=== PATIENT | male | born 1970 | race Caucasian/White ===

== ENCOUNTER 2016-10-01 23:59 | Observation (INO) | payer MEDICAID, OTHER ==
[~2016-10-01] VITALS: Ht 175.3 cm; Wt 68.0 kg
[2016-10-02 00:02] VITALS: BP 141/86; PULSE 110; RESP 18; O2SAT 98
--- NOTE | 2016-10-02 00:33 | ED.REPORT ---
HPI-General Illness Date of Service Oct 02, 2016 ED Provider: Dr. Zachariah Nelson MD A 45 year old male with a history of IV drug abuse presents to the ED complaining of a right hip abscess that first appeared 5 days ago. Patient reports a history of similar pain and abscesses, requiring extensive debridement. He bears extensive scars in that same area from prior episodes of injection drug abuse induced abscesses.. His symptoms have become increasingly worse since initial onset. Patient denies fever, but has had chills, malaise, and increasing pain. Nursing Notes Stated Complaint: HIP ABSCESS Chief Complaint: Skin Rash/Abscess Nursing Notes Reviewed: Yes Allergies: Coded Allergies: No Known Allergies (Unverified , 10/02/16) General Time Seen by MD: 00:32 Chief Complaint Other (Hip Abscess) Hx Obtained From: Patient Arrived By: Walk-in Sudden in Onset?: No Onset Occurred: 5 days ago Context of Onset: Other (IV drug use ) Symptom Duration: Since onset Location: : Hip right Quality: Painful Radiation: : Does not radiate Severity: Current: Mild Severity: Maximum: Mild Associated with: Denies: Fever Pertinent Negative: Pt denies other symptoms Recent Healthcare: No recent doctor visit, No recent hospitalization Past Medical History Past Medical History Hx of abscesses IV drug abuse (heroin) IM drug abuse Reports: IV Drug use Past Surgical History Extensive debridement and drainage of abscesses Smoking History Unknown if Ever Smoker Social History Drug Use: IV drugs Other Social History: Good social support, Local resident Ambulatory Status Independent Review of Systems Abscess to the right hip Full Review of Systems Constitutional: Denies: Chills, Fever Respiratory: Denies: Shortness of breath Cardiovascular: Denies: Chest pain GI: Denies: Abdominal pain, Nausea, Vomiting Musculoskeletal: Reports: Joint pain (Hip pain secondary to abscess) Neurologic: Denies: Change LOC Complete sys rev & neg: except as marked. Physical Exam Vital Signs Vital Signs Date Time Temp Pulse Resp B/P Pulse Ox O2 Delivery O2 Flow Rate FiO2 10/02/16 00:02 38.3 110 18 141/86 98 Room Air Initial VS: Reviewed Neck: Supple, Non-tender, Full range of motion Extremities: Vascular intact, Neuro intact, No swelling, No tenderness General/Constitutional: Awake, Alert Head / Eyes: Atraumatic, Normocephalic ENT: Atraumatic, Airway patent Respiratory / Chest: Atraumatic, No respiratory distress Abdomen: Atraumatic Skin: Atraumatic, Color NL, Warm Abscess Notes: ABSCESS: Right buttock < 1cm 2 old surgical scars approx. 15-20cm Retracted surgical scar on superior glut Lateral abscess (extensive and complex) over point of hip near trochanter Tense with significant pressure Abscess #1 Location/Condition: Positive: Erythema surrounding, Fluctuant (soft fluctuant spot ), Tender Interpretation & Diagnostics Lab Results Interpretation Result Diagram: 10/02/16 0150 10/02/16 0150 Procedures Incision & Drainage Abscess I & D Abscess: Foul odor present 20 ml clump and necrotic tissue debris removal Time: 00:58 Procedure Performed by: ED physician Consent / Setup / Site Prep: Consent from patient, Time-out performed, Hand hygiene observed, Stand sterile technique, Standard surgical scrub, Sterile drapes applied Location of Abscess: Right buttock over point of hip near trochanter Skin Preparation Agent: Betadine Local Anesthesia: Lidocaine w epi 1% Incised Abscess with Scalpel: #15 Pus Drained: Large (500mL), Purulent discharge, Bloody Post-Procedure / Complications: Packing placed, Drain placed, Culture obtained, Gram stain ordered, Dressing applied, No complications, Condition improved, Tolerated procedure well, Patient stable Re-Eval/Medical Decision Med Decision/Clinical Course 45-year-old with history of IV and IM drug abuse with heroin presents with a large abscess developing over five days in his right hip and gluteus, and an area previously compromised by extensive surgery and debridement. He has large dense scars and complex anatomy in the area. Ultrasound reveals a very extensive abscess in the area involves. There is no prospect for stat drainage in the OR. He was therefore advised that relief could be obtained by draining this through a small incision now, and that surgical exploration would likely still be required. He has consented and was drained per procedure note above. 500 mL of pus were obtained and a suction canister. He had considerable pain relief after the procedure. He is admitted now for IV antibiotics, surgical referral and probable drainage in the operating room. Time of Eval: 00:59 Patient Status: Condition improved Re-Evaluation/Progress Note: Patient is rechecked. Abscess is drained. Patient tolerates procedure well. He is informed of his diagnosis and recommended treatment plan to admit. All of the patient's questions are addressed. Consultation : Referral / Consult Name: Lorene Rdz DO Consulted With: Hospitalist Call Returned at: 01:31 Brain Surgeon: Will see patient, Agrees with eval, Agrees with plan, Accepts admit Counseled Regarding: Diagnosis, Lab results, Need for admission Discharge & Departure Primary Impression: Abscess of buttock Additional Impressions: IV drug abuse Leukocytosis Disposition: ADMITTED TO HOSPITAL Discharge Condition All VS Reviewed: Yes Condition: Stable Referrals: NOPCP (PCP) Josr Merritt MD Attestation Portions of this note were transcribed by Castro Rangel. I, Dr. Nelson personally performed the history, physical exam and medical decision-making; I reviewed and confirmed the accuracy of the information in the transcribed note. Signed by: Cary Carrasco, 10/02/16 0200. Zachariah Nelson MD Oct 02, 2016 00:33 CASTRO RANGEL Oct 02, 2016 00:52
[2016-10-02] MEDS ORDERED: Meropenem Inj 1,000 MG in 0.9% Sodium Chloride 100 ML IV ONE (01:25)
[2016-10-02] MEDS ORDERED: Vancomycin Dose per Pharmacist XX ONE (01:25)
[2016-10-02] MEDS ORDERED: Polyethylene Glycol (PEG) 17 Gm Powder PO PRN ×2 (01:40→04:35)
[2016-10-02] MEDS ORDERED: Ondansetron 2 mg/mL 2 mL Inj IVPUSH PRN ×3 (01:40→13:00)
[2016-10-02] MEDS ORDERED: Alum-Mag Hydrox-Simeth 30 mL Suspension PO PRN ×2 (01:40→04:35)
[2016-10-02] MEDS ORDERED: oxyCODONE-Acetamin 5-325 mg Tablet PO ONE (01:55)
[2016-10-02 02:15] LABS: Mean Corpuscular Volume 86.8 fL (81-100); Platelet Count 439 bil/L (150-400)
[2016-10-02] MEDS ORDERED: Vancomycin Inj 1,250 MG in 0.9% Sodium Chloride 250 ML IV ONE (02:15)
[2016-10-02 02:26] VITALS: BP 121/63; PULSE 83; O2SAT 97
[2016-10-02 02:30] LABS: INR 1.16 ratio
[2016-10-02 02:35] LABS: BASOPHILS % (AUTO) 0 % (0-3); EOSINOPHILS % (AUTO) 1 % (0-5); MONOCYTES % (AUTO) 13 % (4-12); NEUTROPHILS % (AUTO) 66 % (40-74)
[2016-10-02 02:39] LABS: Magnesium 1.9 mg/dL (1.6-2.6)
[2016-10-02] MEDS: Lactated Ringer's 1,000 ML IV SCH ×3 (02:48→15:03)
[2016-10-02 03:23] LABS: ERYTHROCYTE SEDIMENTATION RATE 76 mm/hr (0-15)
--- NOTE | 2016-10-02 04:00 | NUR ---
Admission note Pt arrived from ER to [facility] [id number] approx. at 0220. Admission assessment and screening completed. POC discussed and reviewed with pt and he verbalizes understanding.
[2016-10-02] MEDS: 0.9% Sodium Chloride 1,000 ML IV SCH ×2 (04:33→14:33)
--- NOTE | 2016-10-02 04:57 | PCM.HPMED ---
Subjective Date of Service Oct 02, 2016 Primary Provider: Admitting Physician: Lorene Rdz DO Primary Care Physician: Toño Attending Physician: Lorene Rdz DO Admit Status: From the Emergency Department Chief Complaint: Right hip abscess History of Present Illness: Oswaldo is a 45 Y/O M with a history of IV drug abuse (Heroin) who presented to the ED with complaint of a right lateral hip abscess that he first noticed 5 days ago. Patient reports a history of similar pain and abscesses in the past. His symptoms have become increasingly worse since initial onset. Pain is rated 8-9 out of 10 and sharp at its worst, 7/10 presently. Last IV heroin use was 2 days ago. Associated Symptoms are diarrhea, and shortness of breath and dyspnea on exertion that have worsened over the past 3 months. Patient denies fever, sweats, chills, body aches, chest pain, blood in stool, dysuria, hematuria, constipation, abdominal pain, neck pain, sore throat, headaches. In the ED: Patient received vancomycin 1250 mg IV once, meropenem 1000 mg IV once, Percocet by mouth 05/325 mg once. Temperature 38.3, pulse 110, blood pressure 141/86, respiratory rate 18, pulse ox 98% room air Repeat vitals showed temperature 37.3, pulse 83, blood pressure 121/63, 97% on room air Hemogram: WBCs 25.8, hemoglobin 11.9 hematocrit 35.6, platelets 439, neutrophils 66%, monocytes 13, band neutrophils 9, ESR 76 PT/INR 12.5/1.16 Review of Systems: A comprehensive review of systems was conducted and was negative except as mentioned in history of present illness. Allergies Coded Allergies: No Known Allergies (Unverified , 10/02/16) Home Medications No current medications PMH Hx of abscesses History of IV drug abuse History of congenital malformation of left lower extremity Surgical History No prior history of surgery Family History Dad with history of MA, diabetes type II, hypertension, Mom with history of MA, diabetes type II, hypertension, answer unknown type, alive One brother who is alive and healthy One sister who is alive and healthy Patient reports he has lost 5 siblings, one in a motor vehicle accident, 1 in drug overdose, one was a 4-month-old baby boy who possibly secondary to SIDS. Social History Hx Alcohol Use: Yes (drinks 1-2 beers per week on occasion) Hx Substance Use: Yes (heroin IV drug abuse) Hx Tobacco Use: Yes (smokes one pack per day for 30 years) Smoking Status: Unknown if Ever Smoker Living Arrangement: with Family (lives with his mom) Exam Vital Signs Vital Sign - Last Date Time Temp Pulse Resp B/P Pulse Ox O2 Delivery O2 Flow Rate FiO2 10/02/16 02:26 37.3 83 121/63 97 Room Air 10/02/16 00:02 18 Exam General: Alert and oriented 3, resting comfortably in bed, in no acute distress , speaking in full sentences HEENT: NC/AT, eyes, PERRLA, EOMI, pupils are small but not pinpoint bilaterally , neck, soft supple, no adenopathy, mild JVD, no masses, no thyromegaly, throat mucous membranes pink and dry, no erythema, no exudates, no tonsillar swelling, no uvular deviation. Lungs: Mild crackles heard bilaterally, no wheezes, no rhonchi, no use of accessory muscles of respiration, good air movement, good respiratory effort. Heart: Regular rate and rhythm, no murmur heard, no rub, no click, no distant heart sounds, Abdomen: Soft, nontender, nondistended, bowel sounds active Extremities: Left lower shoulder prosthetic, pulses equal and symmetric upper extremity. Right lower extremity dorsalis pedis pulse palpable, without edema Neurologic: See neurologically intact, PT in full sentences, no focal neurological signs. Skin: Right hip with clean dry intact bandage, overlying erythematous skin, bandaged was not removed for exam, erythema extended medially to anterior thigh , medial thigh and scrotum were not involved, multiple small round scars that pockmark the right lower extremity anteriorly. Psychiatric: Mood affect are congruent and appropriate. Lab and Diagnostics Result Diagram: 10/02/16 01510/02/16 015 Assessment & Plan This 45-year-old male with history of IV drug use who presented to the ED complaining of a worsening painful right hip abscess onset 5 days ago. Patient had abscess drained in the ED with drainage of 500 mL of purulent material. Patient was admitted for inpatient IV antibiotics and further workup. # Acute right hip abscess, present on admission, active - Patient had history of IV drug abuse, with heroin - He has history of prior abscess formation - In ED patient had I&D with drainage of 500 mL of purulent material. - Patient was placed on meropenem and vancomycin in the ED - We will continue meropenem and vancomycin - Infectious disease consult recommended in the morning. - Surgical consult recommended in the morning. - Fluid culture pending - MRSA swab nasal pending # History of IV drug abuse, present on admission, active - No IV pain meds - By mouth pain meds only - Patient has Roxicodone 5 mg every 4 hours when necessary - Infectious disease consult recommended the morning. # Acute sepsis, present on admission, active - Temperature 38.3, pulse 110, blood pressure 141/86, respiratory rate 18, pulse ox 98% room air - Wbc's 25.8 - Sepsis criteria met for temperature 38.3, pulse 110, white blood cells 25.8 and source being right buttock abscess. - Continue IV meropenem - Continue IV vancomycin - IV fluids normal saline as needed to maintain blood pressure - Microscopic blood cultures ordered 2 pending, unfortunately blood cultures have been drawn after IV antibiotics had already been administered. - CBC, CMP for the morning # Acute leukocytosis, with left shift, present on admission, active - Temperature 38.3, pulse 110, blood pressure 141/86, respiratory rate 18, pulse ox 98% room air - Wbc's 25.8, bands 9 - Sepsis criteria met for temperature 38.3, pulse 110, white blood cells 25.8 and source being right hip abscess. - Continue IV meropenem - Continue IV vancomycin - IV fluids normal saline as needed to maintain blood pressure # Worsening shortness of breath and dyspnea over the past 3 months, present on admission, active - Given patient's history of IV drug abuse differential diagnosis includes, cardiomyopathy, sick emboli, valvular vegetations with heart failure. - Echo complete He is currently on no home medications. Disposition: Admitted to in patient service with expected length of stay greater than 2 days, secondary to severity of presenting symptoms, treatment plan, complexity of clinical work up, and risk of adverse events. CODE STATUS: Full code PCP: None, patient referred to residency clinic DVT PE prophylaxis: We will hold on prophylactic anticoagulation given possible surgery for abscess. Emergency contact : Lives with ge, VTE Prophylaxis: Sub-Q Heparin (Unfractionated) Resuscitation Status: CPR: Attempt Resuscitation Attending Statement The patient was seen and examined together with house staff on 10/02/2016 and I agree with the history, exam and plan as outlined in the note above. [place] Handley DO Oct 02, 2016 03:58 Lorene Rdz DO Oct 02, 2016 05:31
[2016-10-02] MEDS ORDERED: Vancomycin Dose per Pharmacist XX SCH (08:30)
[2016-10-02] MEDS ORDERED: Meropenem Inj 1,000 MG in IV Premix 1 EACH IV SCH (08:30)
[2016-10-02] MEDS: oxyCODONE-Acetamin 5-325 mg Tablet PO PRN ×2 (09:18→18:02)
[2016-10-02] MEDS: Vancomycin Inj 750 MG in 0.9% Sodium Chloride 250 ML IV SCH ×2 (11:21→11:31)
--- NOTE | 2016-10-02 12:19 | NUR ---
Off Unit Patient off floor to PACU via stretcher.
[2016-10-02] MEDS ORDERED: Lactated Ringer's 1,000 ML IV ONE (12:25)
[2016-10-02] MEDS ORDERED: Lactated Ringer's 1,000 ML IV SCH (12:57)
[2016-10-02] MEDS ORDERED: Lactated Ringer's 500 ML IV PRN (12:57)
--- NOTE | 2016-10-02 12:57 | PCM.HPANE ---
Patient Data Date of Service: Oct 02, 2016 Surgeon Admitting Provider:Lorene Rdz DO Attending Provider:Lorene Rdz DO Primary Care Physician:Toño Other Provider:Elvira Cosme Anesthesia Reason for Visit Abscess Right Buttock Ht/WT & BMI Height (Feet): 5 Height (Inches): 9.00 Weight (Kilograms): 68.000 Body Mass Index 22.20 Allergies Coded Allergies: No Known Allergies (Unverified , 10/02/16) Past Anesthesia History Anesthesia History: Denies:: Anesthesia Reactions Diabetes History Hx Diabetes?: No MRSA MRSA: No Medications Hypertension Medication: No Home Meds Incl Beta Ric: No No Active Prescriptions or Reported Meds History History of ENT Problems?: No Hx of Heart Problems?: Yes Cardiovascular History: Positive for:: Chest Pain Heart Murmur Hypertension Irregular Heartbeat Thrombophlebitis Denies:: Cardiac Surgery Congestive Heart Failure Edema Pacemaker Hx of Respiratory Problem?: Yes Respiratory History: Positive for:: Dyspnea Denies:: Asthma COPD Chest Surgery Emphysema Hemoptysis Pneumonia Tuberculosis Hx Neurologic Problems?: No Hx of GI Problems?: Yes Gastrointestinal History: Positive for:: Heartburn Hepatitis Denies:: Diverticulitis Gastroesphageal Reflux Gastrointestinal Bleeding Hiatal Hernia Rectal Bleeding Hx of Problems?: No Male Hx: Denies:: Prostate Problems Scrotal Mass Testicular Surgery Musculoskeletal History: Positive for:: Back Injury Musculoskeletal Trauma Denies:: Joint Replacement Hx of Psycho/Social Problems?: Yes Psycho Social History: Positive for:: Anxiety Hx Depression Denies:: Bipolar Disorder Suicide Attempt Hx Surgeries?: Yes (toe amputation, appy) Hx Any Other Health Problems?: Yes Other History: Positive for:: Hospitalization Denies:: Cancer Thyroid Disease History Blood Transfusions: Positive for:: Accept Blood Products? Denies:: Blood Transfusions Hx Diabetes: No Hx Alcohol Use: Yes (drinks 1-2 beers per week on occasion)Hx Substance Use: Yes (heroin IV drug abuse) Smoking Status: Unknown if Ever Smoker Have You Smoked inLast 12 mo: YesApprox How Many Cigarettes/day: 1 pk/day Stop/Bang Treated for Sleep Apnea?: No Do You Have a CPAP Machine?: No S-Snoring: Do You Snore Loudly: Yes T-Tired: feel tired, fatigued: No O-Obsered: Observed not breath: No P-Blood Pressure: treated: Yes B- Body Mass Index > 35 kg/m2: No A- Age over 50: No N- Neck Large Circumference: No G- Gender Male: Yes FRANCINE Total Score: 3 FRANCINE Risk Assessment: High Risk, =/>3 Yes Risk Assessment Category Category 1A: Patient has history of documented sleep apnea, and HAS NOT received any narcotic, sedative or anesthesia administration during this stay. Category 1B: Patient has history of documented sleep apnea, and HAS received any narcotic , sedative or anesthesia administration during this stay Category 2: Patient has SUSPECTED Obstructive Sleep Apnea, and HAS received any narcotic , sedative or anesthesia administration during this stay. Category 3: Patient has SUSPECTED Obstructive Sleep Apnea and HAS NOT received narcotic, sedative or anesthesia administration during this stay. Category 4: Outpatient in Procedural Areas with known sleep apnea or who screen positive for High Risk via the STOP/BANG questionnaire. Exam Exam General Appearance: Alert, Oriented X3, Cooperative Lungs: Normal Air Movement Heart: Regular Rate/Rhythm, Normal S1, Normal S2 Meds/Labs/Diagnostics Admission Meds Current Medications Pharmacy Consult 1 ea 1 ea ONCE ONCE XX Last administered on 10/02/16 02:48; Start 10/02/16 at 01:25; Stop 10/02/16 at 02:11; Status DC Meropenem 1000 mg/ Sodium Chloride 100 ml @ 200 mls/hr ONCE ONCE IV Last administered on 10/02/16 02:15; Start 10/02/16 at 01:25; Stop 10/02/16 at 01:54 ; Status DC Lactated Ringer's (Lr) 1,000 ml @ 100 mls/hr Q10H IV Last administered on 10/02 02:48; Start 10/02/16 at 01:37 Oxycodone/ Acetaminophen 1 tab 1 tab ONCE ONCE PO Last administered on 02:25; Start 10/02/16 at 01:55; Stop 10/02/16 at 01:56; Status DC Vancomycin HCl 1250 mg/Sodium Chloride 250 ml @ 166.667 mls/hr ONCE ONCE IV Last administered on 10/02/16 02:48; Start 10/02/16 at 02:15; Stop 10/02/16 at 03:44; Status DC Vancomycin HCl/ Sodium Chloride (Vancocin Inj/ Normal Saline) 250 ml @ 166.667 mls/hr Q8H IV Last administered on 10/02/16t 11:21; Start 10/02/16 at 11:00 Labs Test 10/02/16 01:50 White Blood Count 25.8th/mm3 (3.8-10.1) Red Blood Count 4.10mil/mm3 (4.40-5.80) Hemoglobin 11.9g/dL (13.8-17.2) Hematocrit 35.6% (41.0-50.0) Mean Corpuscular Volume 86.8fL (81-100) Mean Corpuscular Hemoglobin 29.0pg (27.0-35.0) Mean Corpuscular Hemoglobin Concent 33.4% (32.0-37.0) Red Cell Distribution Width 14.9% (12.3-15.4) Platelet Count 439bil/L (150-400) Neutrophils (%) (Auto) 66% (40-74) Lymphocytes (%) (Auto) 9% (14-46) Monocytes (%) (Auto) 13% (4-12) Eosinophils (%) (Auto) 1% (0-5) Basophils (%) (Auto) 0% (0-3) Band Neutrophils % 9% (1-5) Erythrocyte Sedimentation Rate 76mm/hr (0-15) Prothrombin Time 12.5sec (8.1-12.5) Prothromb Time International Ratio 1.16ratio Activated Partial Thromboplast Time 31.9sec (22.8-33.0) Sodium Level 133mEq/L (134-144) Potassium Level 3.7mEq/L (3.5-5.2) Chloride Level 94mEq/L (97-108) Carbon Dioxide Level 24mmol/L (18-29) Blood Urea Nitrogen 10mg/dL (6-24) Creatinine 0.86mg/dL (0.76-1.27) Estimat Glomerular Filtration Rate 101mL/min (>59) Glucose Level 151mg/dL (60-99) Lactic Acid Level 1.7mmol/L (0.4-2.0) Calcium Level 9.0mg/dL (8.5-10.1) Magnesium Level 1.9mg/dL (1.6-2.6) Total Bilirubin 0.3mg/dL (0.0-1.2) Aspartate Amino Transf (AST/SGOT) 23U/L (0-50) Alanine Aminotransferase (ALT/SGPT) 37U/L (0-44) Alkaline Phosphatase 151U/L (25-150) Total Protein 7.1g/dL (6.4-8.4) Albumin 3.2g/dL (3.4-5.0) Plan Impression Patient chart reviewed, patient interviewed and anesthestic plan with risks, benefits, and alternatives discussed, and informed consent obtained. NPO Status: npo ASA Physical Status: ASA3 Severe Disease Anesthetic Plan: GA Bene/Risks/Altern/Consents: Yes HP Complete Prior to Induction: Yes Scott Padgett MD Oct 02, 2016 11:48
[2016-10-02] MEDS ORDERED: Atropine 0.4 mg/mL Inj IVPUSH PRN (13:00)
[2016-10-02] MEDS ORDERED: EPHEDrine Sulfate 50 mg/mL Inj IVPUSH PRN (13:00)
[2016-10-02] MEDS ORDERED: MetoCLOpramide 5 mg/mL 2 mL Inj IVPUSH PRN (13:00)
[2016-10-02] MEDS ORDERED: Labetalol 5 mg/mL 4 mL Inj IV PRN (13:00)
[2016-10-02] MEDS ORDERED: hydrALAZINE 20 mg/mL Inj IVPUSH PRN (13:00)
[2016-10-02] MEDS ORDERED: Dexamethasone 4 mg/mL Inj IVPUSH PRN (13:00)
[2016-10-02] MEDS ORDERED: HYDROmorphone 1 mg/mL Inj IVPUSH PRN (13:00)
[2016-10-02] MEDS ORDERED: Phenylephrine 10,000 mCg/mL Inj IVPUSH PRN (13:00)
[2016-10-02 13:02] VITALS: BP 118/58; PULSE 79; RESP 15; O2SAT 100
[2016-10-02 13:10] VITALS: BP 113/66; PULSE 79; RESP 15; O2SAT 100
--- NOTE | 2016-10-02 13:11 | PCM.ANEP1 ---
Post Anesthesia Phase 1 PACU Phase 1 Assessment Date of Service: Oct 02, 2016 Vital Signs pacu HR 78, RR 8, T 36.1, BP 118/58, O2 100% 10L Anesthetic Administered: GA Level of Alertness: Sleeping, hard to arouse RUIZ's with Equal Strength: Yes Pain: Yes Pain Scale Score: 8 Oxygen Delivery: Simple Mask Lungs: Normal Air Movement Scott Padgett MD Oct 02, 2016 13:11
[2016-10-02] MEDS: fentaNYL-PF 50 mCg/mL 2 mL Inj IVPUSH PRN ×2 (13:20→13:25)
--- NOTE | 2016-10-02 13:26 | PCM.ANEP2 ---
Post Anesthesia Evaluation ASA/CMS Post Anesthesia Date of Service: Oct 02, 2016 VS in Patient's Normal Range?: Yes Resp Stable; Airway Patent?: Yes CV Function & Hydration Stable: Yes Mental Status Recovered?: Yes Pain control Satisfactory?: No (IV heroin abuse) N/V Control Satisfactory?: Yes Scott Padgett MD Oct 02, 2016 13:26
[2016-10-02 13:30] VITALS: BP 113/69; PULSE 76; RESP 15; O2SAT 95
[2016-10-02 13:36] LABS: BASOPHILS % (AUTO) 0.2 % (0-3); EOSINOPHILS % (AUTO) 1.6 % (0-5); MONOCYTES % (AUTO) 16.3 % (4-12); Mean Corpuscular Hemoglobin 29.3 pg (27.0-35.0); Mean Corpuscular Volume 88.4 fL (81-100); NEUTROPHILS % (AUTO) 67.1 % (40-74); Platelet Count 378 bil/L (150-400)
--- NOTE | 2016-10-02 13:50 | NUR ---
Back on Unit Patient back on floor from PACU via stretcher in stable condition. Patient transferred self from stretcher to bed. VSS. Patient reported 8/10 hip pain. Denies nausea at this time. A&Ox3. Dressing reinforced with ABD and tape. Call light and tray table within reach. Will continue to monitor patient hourly.
[2016-10-02 13:59] VITALS: BP 100/62; PULSE 76; RESP 16; O2SAT 96
--- NOTE | 2016-10-02 14:36 | DRSVH ---
[facility] [address] [place] [address] Echocardiogram Report Name: ALEJANDRO GRANDE CStudy Date: 10/02/2016 Height: 69 in Hospital Exam Location: [facility] Weight: 150 lb Gender: Male BSA: 1.8 m2 : 1970 Age: 45 yrs BP: 121/63 mmHg Reason For Study: Endocarditis Ordering Physician: Performed By: [facility] Interpretation Summary The study quality was technically limited. There is no obvious valvular vegetation identified on this exam. Consider KEILY if there is a high degree of clinical suspicion for endocarditis and clinically appropriate. Procedure: A two-dimensional transthoracic echocardiogram with color flow and Doppler was performed. The study quality was technically limited. There is no prior echocardiogram noted for this patient. The heart rate ranged between 78-87 bpm during the study. Left Ventricle: The left ventricle is normal in size. There is normal left ventricular wall thickness. The ejection fraction is estimated to be 55-60%. Assessment of diastolic parameters indicates normal left ventricular diastolic function and normal filling pressures. Right Ventricle: The right ventricle grossly appears normal in size with probable normal systolic function. Atria: The left atrium grossly appears normal in size. Mitral Valve: The mitral valve is normal in structure and function. Aortic Valve: The aortic valve is not well visualized. The aortic valve is grossly normal. Tricuspid Valve: The tricuspid valve is normal in structure and function. Pulmonic Valve: The pulmonic valve is not well visualized. There is no obvious valvular vegetation identified on this exam. Consider KEILY if there is a high degree of clinical suspicion for endocarditis and clinically appropriate. Great Vessels: The aortic root is normal size. Pericardium/ Pleura There is no pericardial effusion. There is no pleural effusion. MMode/2D Measurements & Calculations LVIDd: 4.4 cm IVC diam Ao Arch Diam (Prox LV kellogg. diameter/BSA LVIDs: 3.2 cm : 1.4 cm Trans): 3.0 cm (cm/m^2): 2.4 FS: 26.7 % IVSd: 0.73 cm LVPWd: 0.76 cm LV sys. diameter/BSA (cm/m^2): 1.8 Doppler Measurements & Calculations Ao V2 max MV E max david MV E/A: 1.1 MV dec time : 135.3 cm/sec : 71.6 cm/sec Med Peak E' David : 0.26 sec Ao max P.3 mmHg MV A max david Ao mean P.0 mmHg : 63.6 cm/sec E/E' med: 9.2 MV P1/2t: 77.2 msecLat Peak E' David E/E' lat: 5.8 E/e' average: 7.5 MV P1/2t max david Ao V2 mean : 92.6 cm/sec Ao V2 VTI: 24.0 cm MVA(P1/2t): 2.9 cm2 Reading Physician:PM
--- NOTE | 2016-10-02 15:13 | NUR ---
Social work Note - Brief note Oswaldo Gracia is a 45 yr old who was admitted for abscess on Rt Buttock due to injecting IV heroin. EMR reviewed: Pt has [facility] insurance, no PCP listed. No DPOA. Pt lives in [place] with his mother and significant other. He is independent at baseline. Pt signed behavioral contract with RN. Pt to receive IV abx and Pt went to Surgery for wound care today. [facility] CHIEF will recommend Substance Use Disorder assessment when able to participate. Plan: D/C home with family when medically stable - SW will follow for Substance Use Disorder resources. JAKUB Ray
--- NOTE | 2016-10-02 18:24 | CONS ---
[address] [address] CONSULTATION REPORT PATIENT: ALEJANDRO GRANDE : 1970 MR#: [id number] ADMIT: 10/02/2016 JOB ID: [id number] DATE OF SERVICE: 10/02/2016 REASON FOR CONSULTATION: I have been asked by the hospitalist service to consult on this 45-year-old man with a right hip abscess. HISTORY OF PRESENT ILLNESS: The patient has a longstanding history of IV drug use and previous right hip abscess from injection site infections on his right hip. He presented to the emergency department where they attempted to drain this but only had partial success for decompression. I am asked to see him this morning. He has been kept n.p.o. PAST MEDICAL HISTORY: As above. 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 SOCIAL HISTORY: He does drink alcohol, but not on a daily basis, is using IV heroin, and continues to smoke. MEDICATIONS: See med list. ALLERGIES: No known allergies. The patient also denies allergies on questioning. REVIEW OF SYSTEMS: Noncontributory. PHYSICAL EXAMINATION: The patient is seen in his hospital bed, complaining of pain. He is afebrile. Vital signs are stable. He has obvious fluctuance and erythema on his right hip with a chocolate-colored purulence staining his dressing. IMPRESSION AND PLAN: A large right hip abscess that will require drainage in the OR. If it is deep, he may need some postop imaging. I have discussed the plan to take him upstairs and give him an anesthetic and he is amenable. His questions are answered. We will proceed later today.
[2016-10-02] MEDS ORDERED: Lidocaine PF 1% 30 mL Inj ONE (18:29)
[2016-10-02] MEDS ORDERED: Propofol 10,000 mCg/mL 20 mL Inj ONE (18:29)
[2016-10-02] MEDS ORDERED: HYDROmorphone 2 mg/mL Inj ONE (18:29)
--- NOTE | 2016-10-02 18:37 | NUR ---
AMA Patient left AMA. IV DC'd and intact. Patient informed that by leaving AMA his pain and infection could increase, he could end up with Sepsis, and possible . Dressing reinforced. Closet unlocked and patient walked off the unit.
--- NOTE | 2016-10-02 19:52 | OP ---
[address] [address] OPERATIVE REPORT PATIENT: ALEJANDRO GRANDE : 1970 MR#: [id number] ADMIT: 10/02/2016 JOB ID: [id number] DATE OF SURGERY: 10/02/2016 PREOPERATIVE DIAGNOSIS(ES): Right hip abscess. POSTOPERATIVE DIAGNOSIS(ES): Right hip abscess. PROCEDURE: Incision and drainage, right hip abscess. SURGEON: Josr Merritt MD INDICATIONS: A 45-year-old male with intravenous and subcuticular drug use who presents with a recurrent right hip abscess. This was partially drained in the emergency department with a very small incision that was packed with iodoform. He is brought to the operating room for adequate drainage of a very large hip abscess. FINDINGS: Large hip abscess with undermining and a cavity that was fairly deep with some superficial muscle erosion, roughly 30 cm long by 15 cm wide. See below for details. DESCRIPTION OF PROCEDURE: The patient brought to the operating room and general anesthetic was administered. LMA was used to control his airway. He had received therapeutic meropenem and received perioperative vancomycin. After prepping and draping of the right hip in as sterile a fashion as possible given the ongoing contamination of the wound, we performed a surgical time-out. SCOAP protocol was followed. I now went and probed the cavity with a [place] clamp and elected to make a longitudinal incision just anterior to the small stab wound at the partially decompressed abscess along its longest axis. This was done with a knife and electrocautery. We obtained hemostasis on the skin edges. We released a fair amount of pus and old blood clot. We irrigated out the wound. There was not much to debride. It was a fairly deep cavity and a lot of the surface area was raw and inflamed. After irrigating out with a copious amount of sterile saline, I then packed the wound with two Kerlix rolls and placed a dry dressing. The patient tolerated the procedure well and was transferred to recovery room after blood draws by anesthesia.
[2016-10-03] MEDS ORDERED: Vancomycin Serum Trough XX ONE (02:30)
--- NOTE | 2016-11-03 14:31 | PCM.DC.MED ---
Discharge Summary Date of Service Nov 03, 2016 Dates of Hospitalization Date of Hospital Admission Oct 02, 2016 at 01:45 Date of Discharge: Nov 03, 2016 Providers: Admitting Physician: Lorene Rdz DO Primary Care Physician: Nopmaria l Attending Physician: Lorene Rdz DO Diagnosis at Time of Discharge Diagnosis at Time of Discharge # acute right hip abscess Consultations surgery Dr gordon Procedures Cardiac Echo Impression nterpretation Summary The study quality was technically limited. There is no obvious valvular vegetation identified on this exam. Consider KEILY if there is a high degree of clinical suspicion for endocarditis and clinically appropriate. Invasive Procedures DATE OF SURGERY: 10/02/2016 PREOPERATIVE DIAGNOSIS(ES): Right hip abscess. POSTOPERATIVE DIAGNOSIS(ES): Right hip abscess. PROCEDURE: Incision and drainage, right hip abscess. SURGEON: Josr Gordon MD INDICATIONS: A 45-year-old male with intravenous and subcuticular drug use who presents with a recurrent right hip abscess. This was partially drained in the emergency department with a very small incision that was packed with iodoform. He is brought to the operating room for adequate drainage of a very large hip abscess. FINDINGS: Large hip abscess with undermining and a cavity that was fairly deep with some superficial muscle erosion, roughly 30 cm long by 15 cm wide. See below for details. DESCRIPTION OF PROCEDURE: The patient brought to the operating room and general anesthetic was administered. LMA was used to control his airway. He had received therapeutic meropenem and received perioperative vancomycin. After prepping and draping of the right hip in as sterile a fashion as possible given the ongoing contamination of the wound, we performed a surgical time-out. SCOAP protocol was followed. I now went and probed the cavity with a [place] clamp and elected to make a longitudinal incision just anterior to the small stab wound at the partially decompressed abscess along its longest axis. This was done with a knife and electrocautery. We obtained hemostasis on the skin edges. We released a fair amount of pus and old blood clot. We irrigated out the wound. There was not much to debride. It was a fairly deep cavity and a lot of the surface area was raw and inflamed. After irrigating out with a copious amount of sterile saline, I then packed the wound with two Kerlix rolls and placed a dry dressing. The patient tolerated the procedure well and was transferred to recovery room after blood draws by anesthesia. Josr Gordon MD 10/02/16 3400 <Electronically signed by Josr Gordon MD> 10/03/16 7106 Brief History per HPI by Dr Rdz Oswaldo is a 45 Y/O M with a history of IV drug abuse (Heroin) who presented to the ED with complaint of a right lateral hip abscess that he first noticed 5 days ago. Patient reports a history of similar pain and abscesses in the past. His symptoms have become increasingly worse since initial onset. Pain is rated 8-9 out of 10 and sharp at its worst, 7/10 presently. Last IV heroin use was 2 days ago. Associated Symptoms are diarrhea, and shortness of breath and dyspnea on exertion that have worsened over the past 3 months. Patient denies fever, sweats, chills, body aches, chest pain, blood in stool, dysuria, hematuria, constipation, abdominal pain, neck pain, sore throat, headaches. In the ED: Patient received vancomycin 1250 mg IV once, meropenem 1000 mg IV once, Percocet by mouth 05/325 mg once. Temperature 38.3, pulse 110, blood pressure 141/86, respiratory rate 18, pulse ox 98% room air Repeat vitals showed temperature 37.3, pulse 83, blood pressure 121/63, 97% on room air Hemogram: WBCs 25.8, hemoglobin 11.9 hematocrit 35.6, platelets 439, neutrophils 66%, monocytes 13, band neutrophils 9, ESR 76 PT/INR 12.5/1.16 Hospital Course This 45-year-old male with history of IV drug use who presented to the ED complaining of a worsening painful right hip abscess onset 5 days ago. Patient had abscess drained in the ED with drainage of 500 mL of purulent material. Patient was admitted for inpatient IV antibiotics and further workup. # Acute right hip abscess, present on admission, active - Patient had history of IV drug abuse, with heroin - He has history of prior abscess formation - In ED patient had I&D with drainage of 500 mL of purulent material. - Patient was placed on meropenem and vancomycin in the ED -underwent I&D and left AMA # History of IV drug abuse, present on admission, active - No IV pain meds - By mouth pain meds only - Patient has Roxicodone 5 mg every 4 hours when necessary - Infectious disease consult recommended the morning. -patient left against medical advise # Acute sepsis, present on admission, active - Temperature 38.3, pulse 110, blood pressure 141/86, respiratory rate 18, pulse ox 98% room air - Wbc's 25.8 - Sepsis criteria met for temperature 38.3, pulse 110, white blood cells 25.8 and source being right buttock abscess. - Treated with IV meropenem, IV vancomycin -Treated with IV fluids normal saline as needed to maintain blood pressure - Microscopic blood cultures ordered 2 pending, unfortunately blood cultures have been drawn after IV antibiotics had already been administered. --patient left against medical advise # Acute leukocytosis, with left shift, present on admission, active - Temperature 38.3, pulse 110, blood pressure 141/86, respiratory rate 18, pulse ox 98% room air - Wbc's 25.8, bands 9 - Sepsis criteria met for temperature 38.3, pulse 110, white blood cells 25.8 and source being right hip abscess. -patient left against medical advise # Worsening shortness of breath and dyspnea over the past 3 months, present on admission, active - Given patient's history of IV drug abuse differential diagnosis includes, cardiomyopathy, sick emboli, valvular vegetations with heart failure. - Echo complete no vegitation --patient left against medical advise . Disposition: --patient left against medical advise Exam Exam General: Alert and oriented 3, resting comfortably in bed, in no acute distress , speaking in full sentences HEENT: NC/AT, eyes, PERRLA, EOMI, pupils are small but not pinpoint bilaterally , neck, soft supple, no adenopathy, mild JVD, no masses, no thyromegaly, throat mucous membranes pink and dry, no erythema, no exudates, no tonsillar swelling, no uvular deviation. Lungs: Mild crackles heard bilaterally, no wheezes, no rhonchi, no use of accessory muscles of respiration, good air movement, good respiratory effort. Heart: Regular rate and rhythm, no murmur heard, no rub, no click, no distant heart sounds, Abdomen: Soft, nontender, nondistended, bowel sounds active Extremities: Left lower shoulder prosthetic, pulses equal and symmetric upper extremity. Right lower extremity dorsalis pedis pulse palpable, without edema Neurologic: See neurologically intact, PT in full sentences, no focal neurological signs. Skin: Right hip with clean dry intact bandage, overlying erythematous skin, bandaged was not removed for exam, erythema extended medially to anterior thigh , medial thigh and scrotum were not involved, multiple small round scars that pockmark the right lower extremity anteriorly. Psychiatric: Mood affect are congruent and appropriate. Test 10/02/16 01:50 10/02/16 12:55 Band Neutrophils % 9% (1-5) Erythrocyte Sedimentation Rate 76mm/hr (0-15) Prothrombin Time 12.5sec (8.1-12.5) Prothromb Time International Ratio 1.16ratio Activated Partial Thromboplast Time 31.9sec (22.8-33.0) Lactic Acid Level 1.7mmol/L (0.4-2.0) Magnesium Level 1.9mg/dL (1.6-2.6) White Blood Count 20.4th/mm3 (3.8-10.1) Red Blood Count 3.52mil/mm3 (4.40-5.80) Hemoglobin 10.3g/dL (13.8-17.2) Hematocrit 31.1% (41.0-50.0) Mean Corpuscular Volume 88.4fL (81-100) Mean Corpuscular Hemoglobin 29.3pg (27.0-35.0) Mean Corpuscular Hemoglobin Concent 33.1% (32.0-37.0) Red Cell Distribution Width 15.3% (12.3-15.4) Platelet Count 378bil/L (150-400) Neutrophils (%) (Auto) 67.1% (40-74) Lymphocytes (%) (Auto) 13.4% (14-46) Monocytes (%) (Auto) 16.3% (4-12) Eosinophils (%) (Auto) 1.6% (0-5) Basophils (%) (Auto) 0.2% (0-3) Sodium Level 136mEq/L (134-144) Potassium Level 3.7mEq/L (3.5-5.2) Chloride Level 103mEq/L (97-108) Carbon Dioxide Level 23mmol/L (18-29) Blood Urea Nitrogen 8mg/dL (6-24) Creatinine 0.69mg/dL (0.76-1.27) Estimat Glomerular Filtration Rate 131mL/min (>59) Glucose Level 127mg/dL (60-99) Hemoglobin A1c 6.1% (4.8-5.6) Calcium Level 7.9mg/dL (8.5-10.1) Total Bilirubin 0.4mg/dL (0.0-1.2) Aspartate Amino Transf (AST/SGOT) 36U/L (0-50) Alanine Aminotransferase (ALT/SGPT) 41U/L (0-44) Alkaline Phosphatase 126U/L (25-150) Total Protein 5.4g/dL (6.4-8.4) Albumin 2.3g/dL (3.4-5.0) Procalcitonin 0.26ng/mL (0.00-0.08) Hold Marino Top Tube Received (Received) Discharge Medications No Active Prescriptions or Reported Meds Followup Plan Disposition: --patient left against medical advise Follow-up plan --patient left against medical advise Ayan Arcos MD Nov 03, 2016 14:31
== END 2016-10-02 18:30 | disposition left against medical advice (07) ==
LOC: SED 23:59 → INTOOBSV 10-02 01:45 → OSC 10-02 01:45
PROVIDERS: ADMIT Internal Medicine; ATTEND Internal Medicine
PROC: 0H98XZX Drainage of Buttock Skin, External Approach, Diagnostic (ICD-10-PCS; 2016-10-02)
PROC: 0J9C00Z Drainage of Pelvic Region Subcutaneous Tissue and Fascia with Drainage Device, Open Approach (ICD-10-PCS; 2016-10-02)
PROC: 0J9L0ZZ Drainage of Right Upper Leg Subcutaneous Tissue and Fascia, Open Approach (ICD-10-PCS; principal; 2016-10-02 12:00)
DX: L02.415 Cutaneous abscess of right lower limb (principal); A41.01 Sepsis due to Methicillin susceptible Staphylococcus aureus; D72.829 Elevated white blood cell count, unspecified; F11.10 Opioid abuse, uncomplicated; R06.02 Shortness of breath; F41.9 Anxiety disorder, unspecified; F32.9 Major depressive disorder, single episode, unspecified; F17.210 Nicotine dependence, cigarettes, uncomplicated
CPT/HCPCS: 10061; 26990; 36415; 80053; 82308; 83036; 83605; 83735; 85025; 85610; 85651; 85730; 87040; 87070; 87077; 87186; 87205; 99285; C8929; J1170; J2185; J2250; J3010; J3370; J7050; J7120